=== PATIENT | female | born 2000 | race Caucasian/White ===

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

== ENCOUNTER 2021-04-15 18:16 | Emergency (ER) | payer OTHER, SELFPAY ==
--- NOTE | ~2021-04-15 | XR_ITS ---
EXAMINATION: XR knee RT 3V DATE: 04/15/2021 18:38 INDICATION: Right knee injury. TECHNIQUE: 3 views of right knee were obtained. COMPARISON: Right knee radiographs 08/28/2017 FINDINGS: Bone alignment is normal. No fracture. There is an old screw tract in distal femoral metaph ysis. There are 2 screws in the tuberosity of proximal tibia. One of the screws is broken. Joint spac es are normal. No knee joint effusion. IMPRESSION: 1. No acute fracture. Reviewed, dictated and finalized at location A. IMPRESSION: 1. No acute fracture.
[2021-04-15 18:17] VITALS: BP 135/74; PULSE 80; RESP 16; TEMP 36.6; O2SAT 100
--- NOTE | 2021-04-15 18:33 | ED.LOWEXIN ---
HPI - Extremity Injury (Lower) General Chief Complaint: Extremity Injury, Lower Stated Complaint: knee pain Time Seen by Provider: 04/15/21 18:18 Source: patient Mode of arrival: ambulatory Limitations: no limitations History of Present Illness HPI Narrative: Patient is a 20-year-old female who presents complaining of right knee pain. She reports that she was in the yard and possibly twisted knee wrong way. She reports increased pain with ambulation, reports swelling. She denies taking [id number] medications prior to arrival. She reports a history of knee surgery on same knee in the past with tendon graft and hardware. She denies all other complaints at this time. MD complaint: knee injury Related Data Home Medications Medication Instructions Recorded Confirmed drospirenone (contraceptive) 1 mg PO DAILY 12/03/20 12/03/20 [Slynd] Allergies Allergy/AdvReac Type Severity Reaction Status Date / Time latex Allergy Unknown Rash Verified 04/15/21 18:27 Processed Meats Allergy Unknown Swelling Uncoded 11/29/20 17:15 Review of Systems Review of Systems: Narrative: CONSTITUTIONAL: Denies fever, chills, or sweats. EYES: Denies visual changes, redness, or discharge. ENT: Denies rhinorrhea, congestion, sore throat, or otalgia. CARDIOVASCULAR: Denies chest pain, palpitations, or edema. RESPIRATORY: Denies cough or dyspnea. GASTROINTESTINAL: Denies abdominal pain, nausea, vomiting, or diarrhea. GENITOURINARY: Denies dysuria or hematuria. SKIN: Denies rash or itching. MUSCULOSKELETAL: Reports right knee pain NEUROLOGIC: Denies headache, numbness, dizziness, or weakness. PSYCHIATRIC: Denies anxiety or depression. [facility] Past Medical History Medical History Anxiety Depression PTSD (post-traumatic stress disorder) Surgical History Surgical History History of right knee surgery Family History Family History Mother Gallbladder disease Grandparent Gallbladder disease Father Diabetes mellitus Other Hypertension Social History Social History Smoking status: Never smoker Second hand tobacco smoke exposure: Yes (grandparents) Alcohol intake: never Substance use: never Additional living arrangements comments: Lives with her boyfriend and his family. Additional occupation/education comments: Planning to start college next year. 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 Gender identity (if verbalized by the patient): Female Comments At the time of signature, I have reviewed and agree with nursing past medical, surgical, social, and family history unless otherwise noted. Please see nursing chart for further information. There is no relevant family history pertinent to the presenting complaint. Exam Narrative: Exam Narrative: GENERAL: Well-appearing, well-nourished, and in no acute distress. HEAD: Normocephalic, atraumatic. EYES: EOMI. No redness or drainage. Conjunctiva are normal. ENT: Mucous membranes pink and moist. CHEST: No respiratory distress. HEART: Regular rate and rhythm. MUSCULOSKELETAL: Tenderness with palpation to right medial knee, mild edema noted EXTREMITIES: Normal range of motion. No edema. SKIN: Warm, dry, no rash. NEURO: No focal deficits. Alert and oriented x3. Gait steady. PSYCH: Normal affect. No signs of depression or anxiety. Course Vital Signs Vital signs: Vital Signs Temperature 36.6 C 04/15/21 18:17 Pulse Rate 80 04/15/21 18:17 Respiratory Rate 16 04/15/21 18:17 Blood Pressure 135/74 04/15/21 18:17 Pulse Oximetry 100 04/15/21 18:17 Temperature 36.6 C 04/15/21 18:17 Pulse Rate 80 04/15/21 18:17 Respiratory Rate 16 04/15/21 18:17 Blood Pressure 135/74 04/15/21 18:17 Pulse Oximetry 100
== END 2021-04-15 19:22 | disposition home or self-care (01) ==
PROVIDERS: Emergency Provider Nurse Practitioner
DX: S86.811A Strain of other muscle(s) and tendon(s) at lower leg level, right leg, initial encounter (principal); X50.1XXA Overexertion from prolonged static or awkward postures, initial encounter; Y92.007 Garden or yard of unspecified non-institutional (private) residence as the place of occurrence of the external cause
CPT/HCPCS: 73562; 99283

== ENCOUNTER 2021-07-10 20:57 | Emergency (ER) | payer OTHER, MEDICAID, SELFPAY ==
--- NOTE | ~2021-07-10 | XR_ITS ---
XR wrist RT min 3V DATE: 07/10/2021 21:30 INDICATION: Injury today. Numbness and tingling in the fingertips to the elbow TECHNIQUE: 4 views COMPARISON: None FINDINGS: Small smooth bony density at the tip of the ulnar styloid process, likely an accessory ossi pierre or perhaps an old small cortical avulsion fracture at the radial ulnar styloid. No recent fracture or dislocation. IMPRESSION: No recent fracture or dislocation Reviewed, dictated and finalized at location A.
[2021-07-10 21:11] VITALS: BP 129/73; PULSE 87; RESP 18; TEMP 36.5; O2SAT 99
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
[2021-07-10] MEDS: IBUPROFEN 600 MG TABLET (22:22)
== END 2021-07-10 22:24 | disposition home or self-care (01) ==
PROVIDERS: Emergency Provider Emergency Medicine
DX: S63.501A Unspecified sprain of right wrist, initial encounter (principal); Z77.22 Contact with and (suspected) exposure to environmental tobacco smoke (acute) (chronic); X58.XXXA Exposure to other specified factors, initial encounter
CPT/HCPCS: 73110; 99283; A9270

== ENCOUNTER 2021-08-03 19:12 | Observation (INO) | payer OTHER, MEDICAID, SELFPAY ==
--- NOTE | ~2021-08-03 | CT_ITS ---
EXAMINATION: CTA chest PE protocol DATE: 08/04/2021 00:38 INDICATION: Chest pain TECHNIQUE: Computed tomography (CT) pulmonary angiogram of the chest was performed with 100 mL Omnipa que-350 intravenous contrast. Additional 3D reconstructions utilizing coronal maximum intensity proje ction (MIP) were performed. Automated exposure control and iterative reconstruction technique were em ployed. The dose-length product was 347.01 mGy-cm. COMPARISON: None FINDINGS: Excellent contrast opacification of the pulmonary arteries. There is moderate streak artifact from de nse contrast in the superior vena cava and right atrium. Minimal scattered respiratory motion artifac t which does not significantly limit evaluation. No pulmonary embolism. Suspect the preliminary inter pretation of pulmonary emboli in the left lower lobe may be due to a combination of streak and mixing artifact in the less well-opacified pulmonary veins. No pneumonia, pulmonary edema, pleural effusion or pneumothorax. Heart size is normal. No pericardial effusion. Thoracic aorta is normal in caliber with no dissection. No pathologically enlarged thoracic lymphadenopathy. Multiple Schmorl's nodes in the thoracic spine. IMPRESSION: 1. No pulmonary embolism or other acute cardiopulmonary disease. Reviewed, dictated and finalized at location A.
--- NOTE | ~2021-08-03 | XR_ITS ---
EXAMINATION: XR chest 2V DATE: 08/03/2021 19:41 INDICATION: Chest pain. Chest tightness. TECHNIQUE: Frontal and lateral views of the chest were obtained. COMPARISON: Chest 2 views 12/31/2020 FINDINGS: The chest demonstrates clear lungs without pneumonia, pleural effusion, or pneumothorax. Th e heart size is normal. Surgical clips in the right upper quadrant are likely from cholecystectomy. IMPRESSION: 1. No acute cardiopulmonary disease. Reviewed, dictated and finalized at location A.
--- NOTE | ~2021-08-03 | US_ITS ---
EXAMINATION: US venous doppler [facility] DATE: 08/04/2021 08:12 INDICATION: Pulmonary embolism TECHNIQUE: Grayscale ultrasound images without and with compression and Doppler ultrasound images of the bilateral lower extremity veins were obtained. COMPARISON: None. FINDINGS: The visualized portions of right common femoral vein, profunda (deep) femoral vein, femoral vein, pop liteal vein, posterior tibial veins, peroneal veins, gastrocnemius vein and greater saphenous vein ou tflow are patent. The visualized portions of left common femoral vein, profunda femoral vein, femoral vein, popliteal v ein, posterior tibial veins, peroneal veins, gastrocnemius vein and greater saphenous vein outflow ar e patent. IMPRESSION: 1. No deep venous thrombosis in either lower limb. Reviewed, dictated and finalized at location A.
--- NOTE | 2021-08-03 19:23 | ECG_ITS ---
Measurements Intervals [place] Rate: 69 P: 56 VA: 152 QRS: 61 QRSD: 90 T: 48 QT: 373 QTc: 401 Interpretive Statements SINUS RHYTHM NORMAL ECG Electronically Signed On 08-03-2021 20:09:57 CDT by Haider Krause D.O.
[2021-08-03 19:24] VITALS: BP 100/56; PULSE 76; RESP 18; TEMP 37.7; O2SAT 100
[2021-08-03 19:43] LABS: Basophils Percent Auto 0.3 % (0.2-1.2); Eosinophils Absolute Auto 0.2 K/mm3 (0-0.3); Eosinophils Percent Auto 1.6 % (0-4.4); Hemoglobin 12.8 g/dL (12.0-15.0); Immature Granulocyte Absolute 0.02 K/mm3 (0.00-0.031); Immature Granulocyte Percent A 0.2 % (0-0.5); Lymphocytes Absolute Auto 2.93 K/mm3 (0.9-3.2); Lymphocytes Percent Auto 28.2 % (18.3-44.2); Mean Corpuscular Hemoglobin 27.9 pg (26-34); Mean Corpuscular Volume 87.1 fl (80-100); Mean Platelet Volume 11.7 fl (7.4-10.4); Monocytes Absolute Auto 0.6 K/mm3 (0.1-0.6); Monocytes Percent Auto 5.6 % (2.6-8.5); Neutrophils Absolute Auto 6.7 K/mm3 (1.3-6.7); Neutrophils Percent Auto 64.1 % (45.5-73.1); Platelet Count Result 253 k/mm3 (150-375); Red Blood Count 4.59 M/mm3 (4.2-5.4); Red Cell Distribution Width 13.2 % (11.5-14.5); White Blood Count 10.4 K/mm3 (4.5-10.0)
[2021-08-03 19:52] LABS: INR 0.9; Prothrombin Time 12.4 Seconds (11.1-14.7)
[2021-08-03 19:53] LABS: Partial Thromboplastin Time 29.2 SECONDS (22.3-36.8)
[2021-08-03 20:30] LABS: Anion Gap 9 mmol/L (8-16); Blood Urea Nitrogen 18 mg/dL (8-21); Carbon Dioxide 27 mmol/L (22-30); Chloride 105 mmol/L (98-107); Estimated CRCL calculation 104 ml/min; Estimated Glomerular Filt Rate > 60; Glucose 87 mg/dL (65-110); Potassium 4.1 mmol/L (3.4-5.0); Sodium 141 mmol/L (134-143)
[2021-08-03 20:43] LABS: Troponin I < 0.012 ng/mL (0.000-0.034)
[2021-08-03 21:06] VITALS: BP 119/64; PULSE 70; RESP 15; TEMP 36.7; O2SAT 100
[2021-08-03 21:16] VITALS: O2SAT 100
--- NOTE | 2021-08-03 21:44 | ED.GENADULT ---
HPI - General Adult General Chief complaint: Chest Pain Stated complaint: chest pain, nausea/dizziness, blurry vision Time Seen by Provider: 08/03/21 21:15 Source: patient and RN notes reviewed History of Present Illness HPI narrative: Patient is a 20 y/o female complaining of left sided chest pain starting 3 days ago. She describes her pain as sharp and aching. She states that her pain radiates to left shoulder and clavicle. She rates her pain a 9/10. There is no alleviating or exacerbating factor. She also has headache, blurred vision. She has no focal weakness. Related Data Home Medications Medication Instructions Recorded Confirmed Slynd 1 mg PO DAILY 12/03/20 08/04/21 fluoxetine [Prozac] 20 mg DAILY 08/04/21 08/04/21 guanfacine 1 mg PRN 08/04/21 08/04/21 Allergies Allergy/AdvReac Type Severity Reaction Status Date / Time latex Allergy Unknown Rash Verified 08/03/21 21:17 Processed Meats Allergy Unknown Swelling Uncoded 08/03/21 21:17 Review of Systems Constitutional: Constitutional: Denies chills, Denies fever(s), Reports headache(s) and Denies weakness Eyes: Eyes: Reports blurry vision ENT: Reports headache(s) and Denies neck pain Cardiovascular: Cardiovascular: Reports chest pain and Reports dyspnea Respiratory: Respiratory: Denies cough and Reports dyspnea Gastrointestinal: Gastrointestinal: Denies abdominal pain, Denies diarrhea, Denies nausea and Denies vomiting Genitourinary: Genitourinary: Denies hematuria and Denies dysuria Musculoskeletal: Musculoskeletal: Denies back pain and Denies neck pain Neurologic: Reports headache(s) and Denies weakness [facility] Past Medical History Medical History (Updated 08/09/21 @ 16:53 by Kassandra Macedo MD) Anxiety Depression PTSD (post-traumatic stress disorder) Surgical History Surgical History History of right knee surgery Family History Family History Mother Gallbladder disease Grandparent Gallbladder disease Father Diabetes mellitus Other Hypertension Social History Social History Smoking status: Never smoker Second hand tobacco smoke exposure: Yes (grandparents) Alcohol intake: never Substance use: never Additional living arrangements comments: Lives with her boyfriend and his family. Additional occupation/education comments: Planning to start college next year. 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 Gender identity (if verbalized by the patient): Female Spiritual care concerns: No Exam Const: General: no acute distress and well developed Orientation/consciousness: oriented to person, oriented to place, oriented to time and patient oriented x3 HENMT: Head: normocephalic Ears: external ears normal General nose exam: Normal external nose present Eyes: General: appearance normal, both eyes and all related structures Conjunctivae: conjunctivae normal Neck: Neck: normal visual inspection and full ROM Chest: Chest palpation & inspection: normal inspection of the chest and no tenderness Resp: Effort & Inspection: normal respiratory effort Auscultation: clear to auscultation bilaterally Cardio: Rate: regular rate Rhythm: regular rhythm GI: GI Palp: No abdominal tenderness and Yes Soft to palpation Skin: General skin exam: normal color and turgor normal Neuro: General: oriented to person, oriented to place, oriented to time and patient oriented x3 Cranial nerves: Yes CN's II-XII intact bilaterally Cognition (Neuro): normal cognition Speech: normal speech Motor exam (neuro): 5/5 motor strength present throughout Sensory Exam: normal sensation Coordination: [id number] test normal and [id number] test normal Extrem: General: normal to inspection, full ROM and no pedal edema Psych: Appearance: grossly normal Mental Status: mental stat
[2021-08-03 22:15] LABS: Add Urine Microscopic? YES; Appearance Urine Cloudy (Clear); Bacteria Urine 2+ /hpf; Bilirubin Urine Negative (Negative); Blood Urine Negative (Negative); Color Urine Yellow (Yellow); Glucose Urine UA Negative (Negative); Ketones Urine Negative (Negative); Leukocyte Esterase Ur 1+ LEU/UL (Negative); Mucus Urine Rare /lpf; Nitrate Urine Negative (Negative); Protein Urine Negative (Negative); Specific Grav Ur 1.025 (1.001-1.035); Squamous Epithelial Cell Urine Many /hpf (Few); Urobilinogen Urine Negative mg/dL (<2.0); WBC Urine 16-20 /hpf
[2021-08-03 22:29] LABS: D Dimer 0.94 ug/mL (<0.48)
[2021-08-03 22:39] LABS: Troponin I < 0.012 ng/mL (0.000-0.034)
[2021-08-03 22:43] VITALS: BP 132/59; PULSE 65; RESP 13; O2SAT 100
[2021-08-03 23:48] VITALS: BP 112/65; PULSE 82; RESP 22; O2SAT 100
[2021-08-04] VITALS (8 sets, daily range): BP systolic 104–113; BP diastolic 44–73; PULSE 57–77; RESP 14–20; TEMP 36.6–36.7; O2SAT 99–100; BMI 30.4; BMI 31.3
--- NOTE | 2021-08-04 | ECHO_ITS ---
Patient Info Name: Mary Kay Suarez Age: 20 years : 2000 Gender: Female Ht: 68 in Wt: 200 lbs BSA: 2.11 m2 HR: 63 bpm BP: 105 / 44 mmHg Heart Rhythm: Sinus Rhythm Exam Date: 08/04/2021 8:38 AM Exam Location: [facility] Pulmonary Patient Status: Outpatient Admit Date: 08/04/2021 Staff Ordering Physician: Rogelio Jiménez MD Financial Services Agent: Marcio Polanco RDCS, RT Attending Provider: Priscilla Humphrey PA-C Referring Physician: Tino QUEVEDO; Exam Type: CA echo doppler color flow Study Info Indications I26.99 - Other pulmonary embolism without acute cor pulmonale Complete two-dimensional, color flow and Doppler transthoracic echocardiogram is performed. Summary 1. Left ventricular chamber dimension is normal. 2. Left ventricular systolic function is normal, estimated at 60%. 3. There is no increased left ventricular wall thickness. 4. The left ventricular diastolic function is abnormal. 5. Right atrial chamber dimension is mildly enlarged. 6. There is mild tricuspid valve regurgitation. 7. No pulmonary hypertension, estimated pulmonary arterial systolic pressure is 21 mmHg. Left Ventricle Left ventricular chamber dimension is normal. Left ventricular systolic function is normal, estimated at 60%. There is no increased left ventricular wall thickness. The left ventricular diastolic function is abnormal. Right Ventricle Right ventricular chamber dimension is normal. Right ventricular systolic function is normal. Left Atria Left atrial chamber dimension is normal. Right Atria Right atrial chamber dimension is mildly enlarged. Aortic Valve The aortic valve is probable trileaflet. There is no aortic valve stenosis. There is no aortic valve regurgitation. Pulmonic Valve The pulmonic valve is normal. There is mild pulmonic regurgitation. Mitral Valve The mitral valve has normal leaflets. There is mild mitral valve regurgitation. Tricuspid Valve The tricuspid valve leaflets are normal. There is mild tricuspid valve regurgitation. No pulmonary hypertension, estimated pulmonary arterial systolic pressure is 21 mmHg. Pericardium/Pleural The pericardium appears normal. There is small pericardial effusion. Inferior Vena Cava Normal inferior vena cava with >50% collapse upon inspiration consistent with normal right atrial pressure, 5 mmHg. Aorta The aortic root size at the sinus of Valsalva is normal. Left Ventricular Outflow Tract Name Value Normal LVOT 2D LVOT Diameter 2.0 cm LVOT Doppler LVOT Peak Gradient 4 mmHg LVOT Mean Gradient 2 mmHg LVOT VTI 23 cm LVOT VTI/AV VTI Ratio 0.8 LVOT Stroke Volume 70 ml LVOT CO 4.1 l/min LVOT CI 2.0 l/min/m2 Mitral Valve Name Value Normal
--- NOTE | 2021-08-04 01:34 | PM.IMHP ---
H&P: HPI History of Present Illness Date/Time: 08/04/21 01:34 Chief Complaint: CHEST DISCOMFORT Narrative: THIS IS AN 19-YEAR-OLD FEMALE WITH PAST MEDICAL HISTORY SIGNIFICANT FOR ANXIETY DEPRESSION POSTTRAUMATIC STRESS DISORDER. PATIENT PRESENTED TO THE EMERGENCY ROOM DUE TO CHEST PAIN LOCALIZED TO THE PROXIMAL RETROSTERNAL AREA WITH RADIATION TO THE LEFT SIDE WORSE WITH INSPIRATION DENIES ANY COUGH, HEMOPTYSIS, NO PALPITATIONS, NO SHORTNESS OF BREATH, NO FEVERS, NO RIGORS, NO CHILLS, NO SYNCOPE, HAD NEAR-SYNCOPE SHE HAD SOME NAUSEA BUT NO VOMITING THIS HAS BEEN GOING ON FOR THE LAST 3 DAYS DENIES ANY LONG CAR RIDE NO PAIN IN THE CALVES OR SWELLING SHE TRIED TAKING IBUPROFEN BUT DID NOT HELP. PRELIMINARY WORKUP WAS SIGNIFICANT FOR CTA OF THE CHEST WITH ACUTE SEGMENTAL PE DECISION HAS BEEN MADE TO PLACE THE PATIENT IN OBSERVATION. Review of Systems Review of Systems: CHEST PAIN, NEAR SYNCOPE ,NAUSEA ,DIZZINESS, PAIN WITH DEEP INSPIRATION. Constitutional: Constitutional: Denies chills, Reports fatigue, Denies fever(s), Denies malaise, Denies night sweats and Denies weakness Eyes: Eyes: Denies change in vision ENT: Denies dysphagia, Reports dizziness, Denies nasal congestion, Denies nasal discharge, Denies nasal obstruction and Denies odynophagia Cardiovascular: Cardiovascular: Reports chest pain, Reports lightheadedness, Denies radiating jaw, neck or arm pain, Denies palpitations, Denies dyspnea on exertion and Denies orthopnea Respiratory: Respiratory: Denies cough Gastrointestinal: Gastrointestinal: Denies abdominal pain, Reports nausea and Denies vomiting Genitourinary: Genitourinary: Reports no additional female genitourinary complaints Musculoskeletal: Musculoskeletal: Reports no additional musculoskeletal complaints Integumentary/Breasts: Skin/Breast: Reports system reviewed and no additional complaints, except as docu Neurologic: Reports system reviewed and no additional complaints, except as documented Psychiatric: Psychiatric: Reports no additional psychiatric complaints Endocrine: Endocrine: Reports no additional endocrine complaints Hematologic/Lymphatic: Hematologic/Lymphatic: Reports no additional hematologic/lymphatic complaints Allergic/Immunologic: Allergic/Immunologic: Reports no additional allergic/immunologic complaints [facility] Past Medical History Medical History (Updated 08/04/21 @ 02:36 by Rogelio Jiménez MD) Anxiety Depression PTSD (post-traumatic stress disorder) Surgical History Surgical History History of right knee surgery Family History Family History Mother Gallbladder disease Grandparent Gallbladder disease Father Diabetes mellitus Other Hypertension Social History Social History Smoking status: Never smoker Second hand tobacco smoke exposure: Yes (grandparents) Alcohol intake: never Substance use: never Additional living arrangements comments: Lives with her boyfriend and his family. Additional occupation/education comments: Planning to start college next year. 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 Gender identity (if verbalized by the patient): Female Meds Home Medications and Allergies Home Medications Medication Instructions Recorded Confirmed Type drospirenone (contraceptive) 1 mg PO DAILY 12/03/20 12/03/20 History [Slynd] naproxen 375 mg PO BID #14 tablet 12/31/20 Rx ibuprofen 800 mg PO TID PRN #30 tablet 07/10/21 Rx Allergies Allergy/AdvReac Type Severity Reaction Status Date / Time latex Allergy Unknown Rash Verified 08/03/21 21:17 Processed Meats Allergy Unknown Swelling Uncoded 08/03/21 21:17 Vital Signs Vital Signs - 24 hr 08/03/21 19:24 08/03/21 21:06 08/03/21 21:16 Temperature 99.8 F H 98.1 F Pulse Rate 76 70 Respiratory Rate 18 15 Bloo
[2021-08-04] MEDS: ENOXAPARIN 100 MG/ML SYRINGE 90 MG SUB-Q (01:43)
[2021-08-04 02:26] LABS: Prothrombin Time 12.7 Seconds (11.1-14.7)
[2021-08-04 02:27] LABS: Partial Thromboplastin Time 31.5 SECONDS (22.3-36.8)
[2021-08-04 02:32] LABS: Troponin I < 0.012 ng/mL (0.000-0.034)
--- NOTE | 2021-08-04 03:04 | ADMGEN ---
This patient, Mary Kay Suarez, was admitted to 3 [facility] Surg Room 320-01 at 0255. Patient/family oriented to hospital policies and general routines including ID bracelet, bed and alarms, visiting hours, pain management, procedures, bathroom and other care routines, personal items, smoking policy, room service/diet, and visiting hours. Information on how to activate the Rapid Response Team has been discussed. Patient/Family are encouraged to report perceived risks to care and to ask questions if they do not understand what they are told or what they should do.
[2021-08-04 08:52] LABS: Hematocrit 38.7 % (37.0-47.0); Hemoglobin 12.6 g/dL (12.0-15.0); Mean Corpuscular HGB Conc 32.6 g/dl (32-36); Mean Corpuscular Hemoglobin 28.3 pg (26-34); Mean Corpuscular Volume 86.8 fl (80-100); Mean Platelet Volume 11.7 fl (7.4-10.4); Platelet Count Result 241 k/mm3 (150-375); Red Blood Count 4.46 M/mm3 (4.2-5.4); Red Cell Distribution Width 13.2 % (11.5-14.5); White Blood Count 9.4 K/mm3 (4.5-10.0)
[2021-08-04 09:19] LABS: NT Pro B Type Natriuretic Pept 75 pg/mL (5-100)
--- NOTE | 2021-08-04 14:29 | PM.DS ---
DS: Admitting Diagnosis Discharge Date 08/04/21 Admitting Diagnosis chest pain DS: Discharge Diagnosis Discharge Diagnosis (1) Muscular chest pain: Code(s): R07.89 - Other chest pain Status: Acute (2) Anxiety: Code(s): F41.9 - Anxiety disorder, unspecified Status: Acute (3) PTSD (post-traumatic stress disorder): Code(s): F43.10 - Post-traumatic stress disorder, unspecified Status: Acute (4) Abnormal urinalysis: Code(s): R82.90 - Unspecified abnormal findings in urine Status: Acute DS: Summary Hospital Course Hospital Course: Patient is a 20-year-old female with history anxiety who presented emergency room for chest pain. Patient describes this chest pain as a stabbing chest pain that is worse when she palpates the area or when she breathes in. Is located across her chest and is not associated with shortness of breath, arm pain or jaw pain. She also mentions that she had a headache with blurred vision on admission but denies this for me on my encounter with her. In the ER Her vitals were 37.7? C, pulse 76, respiratory rate 18, blood pressure 100/56, pulse ox 100 on room air. Initial white blood cell count 10.4, hemoglobin 12.3, hematocrit 40.0, platelets 253. BMP within normal limits. Troponins negative x3. BNP normal. D-dimer slightly elevated 0.94. UA appeared contaminated. Patient denies any dysuria, hematuria or frequency. She has no signs and symptoms of a UTI. She underwent a CTA which initially was read as a possible small pulmonary emboli and the patient was admitted to the hospitalist service and was given Lovenox. The CTA was read by our radiologist the next day which was read as negative. The patient did not have any lower extremity DVTs and no personal history of blood clots. I spoke with her about the findings. She said she continued to have some pleuritic/muscular chest pain with inspiration occasionally and is going to try the ibuprofen and heating pad to help with that pain. She said the pain is reproducible and intermittent and it does not happen all the time. Her EKG was negative as were her troponins and BNP. Her echo is pending as of discharge and will be reviewed once completed. She was advised to follow up with primary care physician. She does have a history of anxiety and I spoke with her about her anxiety. She says she is pretty well controlled at this time and has no thoughts of harming herself or others. If she were to have those thoughts, she has an action plan where she is to call the crisis hotline and will connect her to her psychiatrist resources. She was also educated to come back to emergency room for any type of suicidal ideations, worsening chest pain, passing out, fevers 100.4 or greater, or any other worrisome symptom. She is agreeable to no antibiotics for her UA. It does look contaminated and she had absolutely no symptoms. Patient was discharged in stable condition. Time Spent with Patient Time attestation: Total time spent providing and/or coordinating discharge services:38 min Time spent: Greater than 30 minutes Exam Narrative: General: Well developed well nourished patient in NAD HEENT: normocephalic Neck: supple Neuro: Alert and oriented x4 CV:RRR. Telemetry with no abnormal alarm reviews. Pain to palpation to the anterior chest which elicited the patient's pain Resp:CTA Abd: Soft, non distended. No pain to palpation. Positive bowel sounds Extremities: No swelling, erythema, or pain to palpation. DS: Data Data Completed and Pending Labs on day of discharge: Labs from last 24 hours 08/04/21 08/04/21 08/04/21 08:32 08:32 01:58 WBC 9.4 RBC 4.46 Hgb 12.6 Hct 38.7 MCV 86.8 MCH 28.3 MCHC 32.6 RDW 13.2 Plt Count 241 MPV 11.7 H Immature Gran % (Auto) Neut % (Auto) Lymph % (Auto) Alexander % (Auto) Eos % (Auto) Baso % (Auto) Lymph # (Auto) Alexander # (Auto) Eos # (Au
--- NOTE | 2021-08-06 11:18 | PC.NURSE ---
Most likely contamination for urine ZACH Ramirez.
== END 2021-08-04 15:04 | disposition home or self-care (01) ==
LOC: ANHED 21:20 → ANH3MEDSUR 08-04 01:55
PROVIDERS: Physician Assistant; Admitting Provider Internal Medicine; Emergency Provider Emergency Medicine; Visit Provider Internal Medicine
DX: R07.9 Chest pain, unspecified (principal); F41.8 Other specified anxiety disorders; F43.10 Post-traumatic stress disorder, unspecified; R07.89 Other chest pain; R82.90 Unspecified abnormal findings in urine
CPT/HCPCS: 36415; 71046; 71275; 80048; 81001; 81025; 83880; 84484; 85025; 85027; 85380; 85610; 85730; 87086; 87088; 93005; 93306; 93970; 96372; 99285; G0378; J1650; Q9967